=== PATIENT | female | born 1975 | race Caucasian/White ===

== ENCOUNTER 2024-01-20 08:32 | Emergency (ER) | payer OTHER ==
[~2024-01-20] VITALS: Ht 172.7 cm; Wt 70.5 kg
[2024-01-20 08:35] VITALS: TEMP 98.3
[2024-01-20] MEDS: ACETAMINOPHEN 500 MG TABLET PO ONE (08:55)
[2024-01-20] MEDS: LIDOCAINE 5% TRANSDERMAL PATCH TD ONE (08:56)
[2024-01-20] MEDS: IBUPROFEN 600 MG TABLET PO ONE (08:56)
[2024-01-20 09:15] LABS: EOSINOPHILS % (AUTO) 1.7 % (1.0-6.0); HEMOGLOBIN 8.8 g/dL (12.0-16.0); LYMPHOCYTES % (AUTO) 14.8 % (22.0-44.0); MEAN CORPUSCULAR HEMOGLOBIN 21.3 pg (26.0-34.0); MEAN CORPUSCULAR HGB CONC 30.4 G/dL (31.0-37.0); MEAN CORPUSCULAR VOLUME 70 fL (80-100); MONOCYTES # (AUTO) 0.5 K/uL (0.1-1.0); MONOCYTES % (AUTO) 7.3 % (2.0-9.0); NEUTROPHILS # (AUTO) 5.1 K/uL (1.8-7.7); NEUTROPHILS % (AUTO) 75.2 % (40.0-70.0); PLATELET COUNT (AUTO) 656 K/uL (150-450); RED BLOOD CELL COUNT(AUTO) 4.14 MIL/uL (4.00-5.20); RED CELL DISTRIBUTION WIDTH 17.7 % (11.5-14.5); WHITE BLOOD COUNT (AUTO) 6.7 K/uL (4.5-11.0)
[2024-01-20 09:38] LABS: APPEARANCE,URINE CLEAR (CLEAR); BILIRUBIN,URINE NEGATIVE (NEGATIVE); COLOR,URINE YELLOW (YELLOW); GLUCOSE, URINE (UA) NEGATIVE (NEGATIVE); KETONES,URINE NEGATIVE (NEGATIVE); LEUKOCYTE ESTERASE ,URINE NEGATIVE (NEGATIVE); NITRATE,URINE NEGATIVE (NEGATIVE); OCCULT BLOOD,URINE NEGATIVE (NEGATIVE); PROTEIN,URINE TRACE mg/dL (NEGATIVE); SPECIFIC GRAVITIY, URINE 1.028 (1.003-1.030); UROBILINOGEN,URINE <=1.0 mg/dL (<=1.0)
[2024-01-20 09:57] LABS: ANION GAP 7 mmol/L (8-16); CALCIUM, TOTAL 8.7 mg/dL (8.8-10.5); CARBON DIOXIDE 28 mmol/L (22-29); CHLORIDE 105 mmol/L (98-107); CREATININE 0.52 mg/dL (0.60-1.30); GLOMERULAR FILTR. RATE CALC > 60 mL/min (>60); GLUCOSE,RANDOM 80 mg/dL (70-110); POTASSIUM 3.8 mmol/L (3.5-5.1); SODIUM SERUM 139 mmol/L (136-145); UREA NITROGEN, BLOOD 13 mg/dL (7-18)
[2024-01-20 10:05] LABS: ALANINE AMINOTRANSFERASE 15 U/L (12-78); ALBUMIN 3.3 g/dL (3.4-5.0); ALKALINE PHOSPHATASE 64 U/L (46-116); ASPARTATE AMINOTRANSFERASE 13 U/L (15-37); BILIRUBIN,TOTAL 0.2 mg/dL (0.1-1.0); TOTAL PROTEIN, SERUM 7.4 g/dL (6.4-8.2)
[2024-01-20 10:06] LABS: TROPONIN I-HIGH SENSITIVITY 4 ng/L (<51)
[2024-01-20] MEDS ORDERED: IBUP-1492 PO (10:19)
[2024-01-20] MEDS ORDERED: LIDO700A15 TP (10:19)
[2024-01-20] MEDS ORDERED: ACET-3385 PO (10:19)
[2024-01-20 10:53] LABS: RBC MORPHOLOGY COMMENT ABNORMAL RBC MORPH
[2024-01-20 12:12] VITALS: BP 136/77; PULSE 82; RESP 16
== END 2024-01-20 12:12 | disposition home or self-care (01) ==
LOC: EMS 08:33
DX: M54.50 Low back pain, unspecified (principal); R07.89 Other chest pain
CPT/HCPCS: 71045; 80053; 81003; 84484; 84703; 85025; 93005; 99285; 36415-L1; 36415-TC

== ENCOUNTER → 2024-06-10 | Emergency (ER) | payer OTHER ==
[~2024-06-10] MED LIST: ACET-3385 PO; IBUP-1492 PO; LIDO700A15 TP
== END | disposition left against medical advice (07) ==
LOC: EMS 20:41
DX: R51.9 Headache, unspecified (principal); Z53.21 Procedure and treatment not carried out due to patient leaving prior to being seen by health care provider